=== PATIENT | male | born 1955 | race Caucasian/White ===

== ENCOUNTER 2018-11-14 17:28 | Emergency (ER) | payer BC, OTHER ==
[~2018-11-14] VITALS: Ht 177.8 cm; Wt 129.3 kg
--- NOTE | 2018-11-14 17:42 | ED Fall/Injury ---
General Chief Complaint: Trauma-Non Activation Stated Complaint: RIB PAIN, SOB, PT FELL EARLIER TODAY Source: patient, spouse Exam Limitations: no limitations (DRAKE LOUIS) History of Present Illness Date Seen by Provider: Nov 14, 2018 Time Seen by Provider: 17:26 Initial Comments The patient presents to the ER by private conveyance with his significant other and chief complaint that about 3:00, 2-1/2 hours prior to arrival he was chasing the dog in the yard and fell over onto his right side with his right hand and wrist pinned between his ribs in the concrete. He says he grazed the side of his head but did not lose consciousness and is having no headache nausea bloody nose, difficulty walking or confusion. His ribs are very painful 8-9 out of 10 and so he took 2 tablets of Tylenol before coming in. It hurts worse to take a deep breath but he only has mild shortness of breath. No history of lung disease except for tuberculosis that was successfully treated over 15 years ago. He is having no pain in his elbow but does have some pain in his right shoulder and in his right wrist ulnar side. No previous injury to these joints. He is right- handed. He does not use blood thinners. Primary care at [facility]. He had a polyp surgically removed years ago and a gallbladder surgery also in [place]. Polyp was benign. Unsure of his last tetanus vaccination but he is certain that it was more than 5-10 years ago. (DRAKE LOUIS) Allergies and Home Medications Allergies Coded Allergies: Penicillins (Verified Allergy, Unknown, 11/14/18) sulfamethoxazole (Verified Allergy, Unknown, 11/14/18) trimethoprim (Verified Allergy, Unknown, 11/14/18) Patient Home Medication List Home Medication List Reviewed: Yes (DRAKE LOUIS) Review of Systems Review of Systems Constitutional: No chills, No fever, No malaise Eyes: Denies Blindness, Denies Blurred Vision, Denies Drainage Ears, Nose, Mouth, Throat: denies ear pain, denies ear discharge Respiratory: No cough, No short of breath Cardiovascular: see HPI, chest pain; No edema Gastrointestinal: No abdominal pain, No constipation, No diarrhea, No nausea Genitourinary: No discharge, No dysuria Musculoskeletal: see HPI; No back pain; joint pain Skin: see HPI (DRAKE LOUIS) Past Shjdguq-Oxkygv-Hvlvvv Hx Patient Social History Alcohol Use: Denies Use Recreational Drug Use: No Recent Foreign Travel: No Contact w/Someone Who Travel: No (DRAKE LOUIS) Physical Exam Vital Signs Vital Signs - First Documented 11/14/18 17:37 Temp 98.3 Pulse 73 Resp 18 B/P (MAP) 160/88 (112) Pulse Ox 98 O2 Delivery Room Air (NELSON SINCLAIR MD) Vital Signs Capillary Refill : (DRAKE LOUIS) Height, Weight, BMI Height: '" Weight: lbs. oz. kg; BMI Method: General Appearance: WD/WN, mild distress HEENT: PERRL/EOMI, normal ENT inspection, TMs normal, pharynx normal, other (mildly raised 2 cm diameter hematoma over the right buddhism with superficial abrasions. No Rowell sign, raccoon eyes or hemotympanum.) Neck: non-tender, full range of motion, supple, normal inspection Cardiovascular: normal peripheral pulses, regular rate, rhythm, no edema Respiratory: lungs clear, normal breath sounds, no respiratory distress, no accessory muscle use, other (right chest with abrasions superficial, tenderness to palpation over the anterior ribs and with pain on deep inspiration) Peripheral Pulses: 2+ Radial Pulses (R), 2+ Radial Pulses (L) Gastrointestinal: non tender, soft, other (superficial abrasions on the right upper and lower abdomen anteriorly) Extremities: other (right shoulder has limited range of motion to abduction but not flexion or extension. Mild tenderness anterior shoulder to palpation. Abrasions. Right elbow full range of motion without tenderness. Right wrist tenderness over the ulnar styloid process without swelling. Abrasions noted. 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 All hemostatic and clean) (DRAKE LOUIS) [place] Coma Score Best Eye Response: (4) Open Spontaneously Best Verbal Response: (5) Oriented Best Motor Response: (6) Obeys Commands Fredy Total: 15 (DRAKE LOUIS) Progress/Results/Core Measures Results/Orders Medications Given in ED Current Medications Medications Dose Ordered Sig/Stephanie Route Start Time Stop Time Status Last Admin Dose Admin Diphtheria/ Tetanus/Acell Pertussis 0.5 ml ONCE ONCE IM 11/14/18 17:45 11/14/18 17:46 DC 11/14/18 17:48 0.5 ML (NELSON SINCLAIR MD) Vital Signs/I&O 11/14/18 17:37 Temp 98.3 Pulse 73 Resp 18 B/P (MAP) 160/88 (112) Pulse Ox 98 O2 Delivery Room Air (NELSON SINCLAIR MD) Progress Progress Note : Time: 17:44 Progress Note Discussed risks, benefits and alternatives to imaging of the head and he and his both prefer to do a period of observation over imaging of the head. Plan to x-ray the right shoulder, right wrist and one view chest plus right ribs. Tetanus vaccine will be given. He does not want anything for pain right at the moment. (DRAKE LOUIS) Progress Note #1: Time: 18:00 Progress Note I assumed care of the patient from Dr. Louis at shift change. He was getting xrays of ribs, shoulder and wrist. Progress Note #2: Time: 18:32 Progress Note Rib xrays show minimally displaced fractures of lateral aspect of 6th and 7th ribs on right side. No acute process on wrist or shoulder. Treat with incentive spirometer. Ice for pain and inflammation. Discussed with him Acetaminophen and Ibuprofen or Naproxen for pain management as well as possibly using Lidocaine patches OTC. He states that he does not do well with prescription pain medicines as they cause constipation and his "internal organs to slow down to the extreme". His tetanus was already updated. Keep abrasions clean at home. Follow up with clinic for continued management. (NELSON SINCLAIR MD) Diagnostic Imaging Diagonstic Imaging: Xray Plain Films/CT/US/NM/MRI: other (ribs and chest) Comments NAME: VENTURA GÓMEZ JR MED REC#: [id number] PT STATUS: REG ER : 1955 PHYSICIAN: DRAKE LOUIS MD ADMIT DATE: 11/14/18/ER FS Draft Date of Exam:11/14/18 RIBS/UNILATERAL WITH CHEST INDICATION: Right rib pain after fall. COMPARISON: None available. TECHNIQUE: Five views of the right ribs were obtained. FINDINGS: There are acute and mildly displaced fractures of the lateral right sixth and seventh ribs. No pneumothorax or pleural effusion. No airspace consolidations. IMPRESSION: Acute, minimally displaced fracture of the anterior aspect of the right sixth and seventh ribs. Dictated on workstation # [id number] Dict: 11/14/181824 Trans: 11/14/181827 [id number] Interpreted by: XIOMARA NICHOLSON MD Electronically signed by: Diagonstic Imaging: Xray Plain Films/CT/US/NM/MRI: other (shoulder) Comments NAME: [facility] REC#: [id number] PT STATUS: REG ER : 1955 PHYSICIAN: DRAKE LOUIS MD ADMIT DATE: 11/14/18/ER FS Draft Date of Exam:11/14/18 SHOULDER 3 VIEW RIGHT INDICATION: Right shoulder pain after fall. TECHNIQUE: Three views of the right shoulder. FINDINGS: No acute fracture or traumatic malalignment in the right shoulder. Narrowing of the subacromial space may relate to chronic superior rotator cuff tear. Linear mineralization overlying the humeral head at its mid aspect could relate to calcific tendinosis. IMPRESSION: 1. No acute osseous abnormality of the right shoulder. 2. Potential old tear of the superior rotator cuff. Dictated on workstation # [id number] Dict: 11/14/181827 Trans: 11/14/18 183 [id number] Interpreted by: XIOMAAR NICHOLSON MD Electronically signed by: Diagonstic Imaging: Xray Plain Films/CT/US/NM/MRI: other (wrist) Comments NAME: DALIAVENTURA [facility]LES MED REC#: [id number] PT STATUS: REG ER : 1955 PHYSICIAN: DRAKE LOUIS MD ADMIT DATE: 11/14/18/ER FS Draft Date of Exam:11/14/18 WRIST 3 VIEW RIGHT INDICATION: Right wrist pain after fall. COMPARISON: None available. TECHNIQUE: Three views of the right wrist were obtained. FINDINGS: No fracture or traumatic malalignment. Mild degenerative joint space narrowing at the thumb CMC. No radiopaque foreign body. IMPRESSION: No acute fracture about the right wrist. Dictated on workstation # [id number] Dict: 11/14/181826 Trans: 11/14/181828 [facility] [id number] Interpreted by: XIOMARA NICHOLSON MD Electronically signed by: (NELSON SINCLAIR MD) Departure Impression Primary Impression: Fall Qualified Codes: W19.XXXA - Unspecified fall, initial encounter Additional Impressions: Abrasions of multiple sites Right wrist pain Right anterior shoulder pain Rib pain on right side Closed fracture of two ribs of right side Qualified Codes: S22.41XA - Multiple fractures of ribs, right side, initial encounter for closed fracture Disposition: HOME, SELF-CARE Condition: Stable Departure-Patient Inst. Decision time for Depature: 18:54 (NELSON SINCLAIR MD) Referrals: NO,LOCAL PHYSICIAN (PCP) Primary Care Physician Patient Instructions: Head Injury Observation (DC), Passive Range of Motion Exercises, Neck and Shoulders, Rib Fracture (DC), Shoulder Pain (DC), Skin Abrasions (DC), Wrist Sprain (DC) Add. Discharge Instructions: Keep the wounds clean with regular soap and water. It's okay to apply a thin layer of Vaseline or triple antibiotic ointment and cover with a dressing to keep clean. Tylenol 1000 mg every 8 hours as needed for pain. Ibuprofen 800 mg every 8 hours as needed for pain. Ice applied to the shoulder and wrist every 4 hours for the first 3 days can be helpful for swelling and pain. Wrap the wrist with an Felipe bandage for compression for the first week. Apply a sling to the right arm for the first 4-7 days as needed to decrease pain. Take your arm out of the sling and move it through passive range of motion 4-6 times a day to prevent frozen shoulder. Follow-up with primary care for reevaluation in 7-10 days if you're still having significant swelling, pain or immobility. Take 10 slow, deep inspirations through the incentive spirometer every 6 hours for the first week to prevent pneumonia. All discharge instructions reviewed with patient and/or family. Voiced understanding. REG,DRAKE J Nov 14, 2018 17:42 NELSON SINCLAIR MD Nov 14, 2018 18:36
[2018-11-14] MEDS: TETANUS,DIPTH,PERTUSS P/F (BOOSTRIX) 0.5 ML VIAL IM ONE (17:48)
--- NOTE | 2018-11-14 18:29 | Diagnostic Imaging Report ---
INDICATION: Right rib pain after fall. COMPARISON: None available. TECHNIQUE: Five views of the right ribs were obtained. FINDINGS: There are acute and mildly displaced fractures of the lateral right sixth and seventh ribs. No pneumothorax or pleural effusion. No airspace consolidations. IMPRESSION: Acute, minimally displaced fracture of the anterior aspect of the right sixth and seventh ribs. Dictated by: Dictated on workstation # [id number]
--- NOTE | 2018-11-14 18:30 | Diagnostic Imaging Report ---
INDICATION: Right wrist pain after fall. COMPARISON: None available. TECHNIQUE: Three views of the right wrist were obtained. FINDINGS: No fracture or traumatic malalignment. Mild degenerative joint space narrowing at the thumb CMC. No radiopaque foreign body. IMPRESSION: No acute fracture about the right wrist. Dictated by: Dictated on workstation # [id number]
--- NOTE | 2018-11-14 18:31 | Diagnostic Imaging Report ---
INDICATION: Right shoulder pain after fall. TECHNIQUE: Three views of the right shoulder. FINDINGS: No acute fracture or traumatic malalignment in the right shoulder. Narrowing of the subacromial space may relate to chronic superior rotator cuff tear. Linear mineralization overlying the humeral head at its mid aspect could relate to calcific tendinosis. IMPRESSION: 1. No acute osseous abnormality of the right shoulder. 2. Potential old tear of the superior rotator cuff. Dictated by: Dictated on workstation # [id number]
[2018-11-14 19:00] VITALS: BP 142/73
== END 2018-11-14 19:05 | disposition home or self-care (01) ==
LOC: ER FS 17:28
DX: S22.41XA Multiple fractures of ribs, right side, initial encounter for closed fracture (principal); S00.83XA Contusion of other part of head, initial encounter; S20.311A Abrasion of right front wall of thorax, initial encounter; S30.811A Abrasion of abdominal wall, initial encounter; S40.211A Abrasion of right shoulder, initial encounter; S60.811A Abrasion of right wrist, initial encounter; R40.2142 Coma scale, eyes open, spontaneous, at arrival to emergency department; R40.2252 Coma scale, best verbal response, oriented, at arrival to emergency department; R40.2362 Coma scale, best motor response, obeys commands, at arrival to emergency department; Z88.0 Allergy status to penicillin; Z88.2 Allergy status to sulfonamides; Z88.1 Allergy status to other antibiotic agents; W18.39XA Other fall on same level, initial encounter; Y92.096 Garden or yard of other non-institutional residence as the place of occurrence of the external cause
CPT/HCPCS: 71101; 73030; 73110; 90715